=== PATIENT | female | born 1960 | race Caucasian/White ===

== ENCOUNTER → 2017-02-21 | Outpatient (CLI) | payer BC ==
[~2017-02-21] MED LIST: ALBU8.5H4 IH; ATOR10TA66 PO; DIPH25TA82 PO; ESCI20TA2 PO; ESTR1PAT TD; FEXO-16 PO; LIRA0.6P3 SQ; LOSA25TA5 PO; MELA5CAP PO; SAXA1TBM3 PO
--- NOTE | 2017-02-21 15:32 | Diagnostic Imaging Report ---
Three views of the sacrum and coccyx. INDICATION: Fall, coccyx pain. FINDINGS: There is normal alignment of the SI joints. There is no fracture identified. No radiopaque foreign body seen. IMPRESSION: Unremarkable exam. Dictated by: Dictated on workstation # [id number]
== END ==
LOC: RAD 14:50
PROVIDERS: ATTEND Nurse Practitioner Family
DX: M53.3 Sacrococcygeal disorders, not elsewhere classified (principal)
CPT/HCPCS: 72220

== ENCOUNTER → 2021-12-16 | Outpatient (CLI) | payer BC ==
--- NOTE | 2021-12-16 10:35 | Diagnostic Imaging Report ---
CLINICAL INDICATION: Patient with shortness of air and right-sided pain. EXAM: Chest x-ray PA and lateral views. COMPARISON: Chest x-ray dated 10/17/2011. FINDINGS: Lungs/pleura: There is interval mild patchy and curvilinear opacities in both lung bases which may represent atelectasis versus infiltrates. There is no pneumothorax. There is no pleural effusion. Mediastinum: Unremarkable. Pulmonary vasculature: Unremarkable. Heart: Unremarkable. Bones/extrathoracic soft tissue: There are hypertrophic spurs involving the thoracic spine.. IMPRESSION: There are interval mild bibasilar atelectasis versus infiltrates. Dictated by: Dictated on workstation # [id number]
== END ==
LOC: RAD 09:47
PROVIDERS: ATTEND Nurse Practitioner Family
DX: R06.02 Shortness of breath (principal); R05.3 Chronic cough; R07.9 Chest pain, unspecified
CPT/HCPCS: 71046

== ENCOUNTER → 2021-12-21 | Outpatient (CLI) | payer BC ==
[~2021-12-21] MED LIST changes: +CATHETER FLUSH 10 ML SYR IV PRN; +IOHEXOL 350 MG/ML 100 ML (OMNIPAQUE 350) VIAL IV ONE; +NS 100 ML (IVPB) BAG IV ONE; +RT-ALBUTEROL SULF 2.5 MG/3 ML PRE-MIX VIAL INH ONE
[2021-12-21 11:57] LABS: CREATININE SERUM 0.95 MG/DL (0.60-1.30)
--- NOTE | 2021-12-21 13:31 | Diagnostic Imaging Report ---
EXAMINATION: CT chest with intravenous contrast. TECHNIQUE: Multiple contiguous axial images were obtained through the chest after the uneventful administration of intravenous contrast. All CT scans use one or more of the following dose optimizing techniques: automated exposure control, MA and/or KvP adjustment based on patient size and exam type or iterative reconstruction. HISTORY: Chronic cough, shortness of breath. COMPARISON: None available. FINDINGS: Thyroid: The thyroid is normal. Mediastinum: Heart size is normal without significant pericardial effusion. A filling defect is seen within the right main pulmonary artery extending into the right lower lobe pulmonary artery. Filling defect is also seen within the left lower lobe segmental branches. The aorta is normal in caliber. No suspicious lymphadenopathy. Lungs and airways: There are background emphysematous changes of the lungs. Right lower lobe atelectasis or consolidation/infarct. No pleural effusion or pneumothorax. The airways are normal. Upper abdomen: Cholelithiasis. Musculoskeletal: Degenerative changes of the spine without suspicious osseous lesion or compression fracture. IMPRESSION: 1. Findings concerning for pulmonary embolus within the right main, right lower, and left lower lobe pulmonary arteries. 2. Right lower lobe atelectasis/consolidation versus pulmonary infarct. 3. COPD. 4. CRITICAL FINDING. The report was called to Laura the office of Maile Ge APRN, by randal@1:30 PM. Dictated by: Dictated on workstation # [id number]
== END ==
LOC: RAD 12:15
PROVIDERS: ATTEND Nurse Practitioner Family
DX: J44.9 Chronic obstructive pulmonary disease, unspecified (principal); Z87.891 Personal history of nicotine dependence
CPT/HCPCS: 71260; 82565; 84520; 94060; 94726; 94729

== ENCOUNTER → 2021-12-22 | Outpatient (CLI) | payer BC ==
[~2021-12-22] MED LIST changes: -CATHETER FLUSH 10 ML SYR IV PRN; -IOHEXOL 350 MG/ML 100 ML (OMNIPAQUE 350) VIAL IV ONE; -NS 100 ML (IVPB) BAG IV ONE; -RT-ALBUTEROL SULF 2.5 MG/3 ML PRE-MIX VIAL INH ONE
--- NOTE | 2021-12-22 09:45 | Diagnostic Imaging Report ---
PROCEDURE: US Venous Lower Ext Sae. TECHNIQUE: Multiple Real-time grayscale images were obtained over the lower extremities in various projections, bilaterally. Additional duplex Doppler and color Doppler images were also obtained. INDICATION: Pulmonary embolism. FINDINGS: There is partially occlusive DVT in the right common femoral vein extending to the popliteal vein. There is occlusive DVT in the peroneal trunk extending into the calf on the right as well. The left lower extremity deep venous system shows normal compressibility with normal response to augmentation and Valsalva. No fluid collections are seen. IMPRESSION: Extensive right lower extremity DVT. Left lower extremity is unremarkable. Dictated by: Dictated on workstation # [id number]
== END ==
LOC: RAD 08:30
PROVIDERS: ATTEND Nurse Practitioner Family
DX: I82.401 Acute embolism and thrombosis of unspecified deep veins of right lower extremity (principal); I26.99 Other pulmonary embolism without acute cor pulmonale
CPT/HCPCS: 93970

== ENCOUNTER → 2022-01-14 | Outpatient (CLI) | payer BC ==
[~2022-01-14] MED LIST changes: +CATHETER FLUSH 10 ML SYR IV PRN; +HOLD METFORMIN - RECEIVED CONTRAST 20 ML VIAL IV SCH; +IOHEXOL 350 MG/ML 100 ML (OMNIPAQUE 350) VIAL IV ONE; +NS 100 ML (IVPB) BAG IV ONE
--- NOTE | 2022-01-14 10:21 | Diagnostic Imaging Report ---
PROCEDURE: CT angiography of the chest with contrast. TECHNIQUE: Multiple contiguous axial images were obtained through the chest after uneventful bolus administration of intravenous contrast. 3D reconstructed CTA MIP acquisitions were also performed. Auto Exposure Controls were utilized during the CT exam to meet ALARA standards for radiation dose reduction. INDICATION: History of DVT, PE and COPD. COMPARISON with study 12/21/2021. FINDINGS: A small amount of incompletely occlusive clot within the distal right main pulmonary artery extends into the right lower lobar branches and is believed to be at least somewhat decreased from the prior. Small amount of nonocclusive clot within left lower lobe pulmonary arterial branches also decreased. Pleural-based wedged configured opacity in the right lower lobe, likely on a post ischemic basis has shown partial retraction and there is decreased bibasilar partial atelectasis, greater right. There has been no adverse development and no findings to suggest new or progressive PE. There are no secondary findings of pulmonary hypertension or right heart strain. The aorta is patent, nonaneurysmal and nonacute. No intracardiac chamber mass or thrombus apparent. The aorta is patent, nonaneurysmal and nonacute. There is no pneumothorax. No pleural or pericardial effusion. No lymphadenopathy. The visualized upper abdomen nonacute with cholelithiasis noted. IMPRESSION: At least mild interval reduction in bilateral greater right pulmonary arterial embolic disease with no new thrombus identified and no findings of right heart strain or features suggestive of elevated right heart pressures. Retraction of a likely [place] hump in the right lower lobe with improvements in basilar atelectasis. No acute pleural pathology. Cholelithiasis. Report given and faxed to [facility] at 10:20 AM 01/14/2022/cb Dictated by: Dictated on workstation # [id number]
== END ==
LOC: RAD 08:30
PROVIDERS: ATTEND Nurse Practitioner Family
DX: I82.409 Acute embolism and thrombosis of unspecified deep veins of unspecified lower extremity (principal); J90 Pleural effusion, not elsewhere classified; J44.9 Chronic obstructive pulmonary disease, unspecified; K80.20 Calculus of gallbladder without cholecystitis without obstruction
CPT/HCPCS: 71275

== ENCOUNTER → 2022-02-15 | Outpatient (CLI) | payer BC ==
[~2022-02-15] MED LIST changes: -CATHETER FLUSH 10 ML SYR IV PRN; +CATHETER FLUSH 10 ML SYR IVP PRN; -HOLD METFORMIN - RECEIVED CONTRAST 20 ML VIAL IV SCH; -IOHEXOL 350 MG/ML 100 ML (OMNIPAQUE 350) VIAL IV ONE; -NS 100 ML (IVPB) BAG IV ONE; +REGADENOSON 0.4 MG/5 ML SYR (LEXISCAN) IV ONE
[2022-02-15 09:28] VITALS: BP 130/83
== END ==
LOC: CARD 08:30
PROVIDERS: ATTEND Internal Medicine Cardiovascular Disease
DX: I25.10 Atherosclerotic heart disease of native coronary artery without angina pectoris (principal)
CPT/HCPCS: 78452; 93017; A9502

== ENCOUNTER → 2022-02-16 | Outpatient (CLI) | payer BC ==
[~2022-02-16] MED LIST changes: -CATHETER FLUSH 10 ML SYR IVP PRN; -REGADENOSON 0.4 MG/5 ML SYR (LEXISCAN) IV ONE
== END ==
LOC: CARD 14:30
PROVIDERS: ATTEND Internal Medicine Cardiovascular Disease
DX: I35.8 Other nonrheumatic aortic valve disorders (principal); I51.7 Cardiomegaly
CPT/HCPCS: 93306

== ENCOUNTER 2022-11-11 11:30 | Emergency (ER) | payer BC ==
[~2022-11-11] VITALS: Ht 165 cm; Wt 73.0 kg
[2022-11-11 12:00] LABS: BASOPHILS # (AUTO) 0.1 10^3/uL (0.0-0.1); BASOPHILS % (AUTO) 1 % (0-10); EOSINOPHILS # (AUTO) 0.1 10^3/uL (0.0-0.3); EOSINOPHILS % (AUTO) 2 % (0-10); HEMATOCRIT 46 % (35-52); HEMOGLOBIN 15.7 g/dL (11.5-16.0); LYMPHOCYTES # (AUTO) 3.2 10^3/uL (1.0-4.0); LYMPHOCYTES % (AUTO) 43 % (12-44); MEAN CORPUSCULAR HEMOGLOBIN 30 pg (25-34); MEAN CORPUSCULAR HGB CONC 34 g/dL (32-36); MEAN CORPUSCULAR VOLUME 89 fL (80-99); MEAN PLATELET VOLUME 10.3 fL (9.0-12.2); MONOCYTES # (AUTO) 0.6 10^3/uL (0.0-1.0); MONOCYTES % (AUTO) 8 % (0-12); NEUTROPHILS # (AUTO) 3.4 10^3/uL (1.8-7.8); NEUTROPHILS % (AUTO) 46 % (42-75); PLATELET COUNT 201 10^3/uL (130-400); WHITE BLOOD COUNT 7.3 10^3/uL (4.3-11.0)
--- NOTE | 2022-11-11 12:04 | ED Chest Pain ---
General Chief Complaint: Respiratory Problems Stated Complaint: CHEST PAINS Nursing Triage Note: PT AMB TO TRIAGE, PT STATES FEELS LIKE MAY HAS PE. PT STATES SL SOA, HAS PAIN IN R CALF AND STATES HAD LONG CAR RIDES YESTERDAY. PT HAS PAIN IN R SIDE RATES DISCOMFORT 11/11 Source: patient Exam Limitations: no limitations (CHICHO WHYTE) History of Present Illness Date Seen by Provider: Nov 11, 2022 Time Seen by Provider: 12:02 Initial Comments Patient is a 62-year-old female who presents ED with right-sided chest pain and shortness of breath. Patient has a history of PE. Currently on Xarelto. Patient states yesterday she traveled to [place]. She noticed yesterday having some pain to the right lower ribs that was intermittent with shortness of breath. She states while she was reading was only able to read 2 or 3 words and started feeling short of breath. This is intermittent. This became worse last night. No current chest pain. She started developing pain behind her right calf without any swelling, bruising or redness. She states her symptoms today feels very similar to when she had a PE. She does have a history of COPD and does have a breathing nebulizer at home. She reports a mild cough without wheezing. Denies abdominal pain, fever, vomiting, diarrhea, headache, dizziness. Denies history of stroke, DC (CHICHO WHYTE) Allergies and Home Medications Allergies Coded Allergies: No Known Drug Allergies (Verified Allergy, Unknown, 01/25/09) Patient Home Medication List Home Medication List Reviewed: Yes (CHICHO WHYTE) Atorvastatin Calcium (Atorvastatin Calcium) 10 Mg Tablet, 20 MG PO HS, (Reported) Entered as Reported by: SHASHI THOMPSON on 06/25/12 1359 Diphenhydramine Hcl (Diphenhydramine 25 Mg) 25 Mg Tablet, 1 EACH PO HS, (R eported) Entered as Reported by: LUIS HAYNES on 04/29/13 0750 Escitalopram Oxalate (Lexapro) 20 Mg Tablet, 1 EACH PO HS, (Reported) Entered as Reported by: MARIBELL GARCIA on 02/18/13 0825 Fexofenadine Hcl (Wal-Fex Allergy) 180 Mg Tablet, 180 MG PO HS, (Reported) Entered as Reported by: SHASHI THOMPSON on 06/25/12 1359 Liraglutide (Victoza 3-Rajiv) 0.6 Mg/0.1 Ml Pen.injctr, 0.6 MG SQ DAILY, (Reported) Entered as Reported by: MARIBELL GARCIA on 02/18/13 0825 Losartan Potassium (Losartan Potassium) 25 Mg Tablet, 50 MG PO HS, (Reported) Entered as Reported by: SHASHI THOMPSON on 06/25/12 135 Melatonin (Melatonin) 5 Mg Capsule, 7.5 MG PO HS, (Reported) Entered as Reported by: SHASHI THOMPSON on 06/25/12 1359 Review of Systems Review of Systems Constitutional: No chills, No diaphoresis, No malaise, No weakness EENTM: No Eye Pain, No Ear Pain, No Mouth Pain, No Throat Swelling Respiratory: Denies Cough; Shortness of Air Cardiovascular: Chest Pain Gastrointestinal: Denies Abdominal Pain, Denies Diarrhea, Denies Nausea, Denies Vomiting Genitourinary: Denies Burning, Denies Discharge Musculoskeletal: No back pain, No joint pain; muscle pain Skin: No change in color, No change in hair/nails (CHICHO WHYTE) All Other Systems Reviewed Negative Unless Noted: Yes (CHICHO WHYTE) Past Mjfyimw-Ldalzb-Wsasvj Hx Patient Social History Tobacco Use?: Yes Tobacco type used: Cigarettes Smoking Status: Current Everyday Smoker Substance use?: Yes Substance type: Marijuana Substance frequency: Daily Alcohol Use?: No (CHICHO WHYTE) Immunizations Up To Date Influenza Vaccine Up-to-Date: No; Not Current (CHICHO WHYTE) Past Medical History Surgery/Hospitalization HX: PE, DIABETES, Reproductive Disorders: No (CHICHO WHYTE) Physical Exam Vital Signs Vital Signs - First Documented 11/11/22 11:32 Temp 36.8 Pulse 80 Resp 16 B/P (MAP) 180/80 (113) Pulse Ox 95 (JARRED HURTADO MD) Vital Signs Capillary Refill : Less Than 3 Seconds (CHICHO WHYTE) Height, Weight, BMI Height: '" Weight: 215lbs. oz. [id number]; 26.00 BMI Method: General Appearance: No Apparent Distress, WD/WN HEENT: PERRL/EOMI, TMs Normal, Normal ENT Inspection, Pharynx Normal Neck: Full Range of Motion, Normal Inspection, Non Tender, Supple Respiratory: Chest Non Tender, Lungs Clear, Normal Breath Sounds, No Accessory Muscle Use, No Respiratory Distress Cardiovascular: Regular Rate, Rhythm, No Edema, No Gallop, No JVD Gastrointestinal: Normal Bowel Sounds, No Organomegaly, No Pulsatile Mass, Non Tender Extremity: Normal Capillary Refill, Normal Range of Motion, Other (Tenderness to right posterior calf.) Neurologic/Psychiatric: Alert, Oriented x3, No Motor/Sensory Deficits, Normal Mood/Affect (CHICHO WHYTE) Progress/Results/Core Measures Results/Orders Lab Results Laboratory Tests Test 11/11/22 11:48 Range/Units White Blood Count 7.3 4.3-11.0 10^3/uL Red Blood Count 5.19 H 3.80-5.11 10^6/uL Hemoglobin 15.7 11.5-16.0 g/dL Hematocrit 46 35-52 % Mean Corpuscular Volume 89 80-99 fL Mean Corpuscular Hemoglobin 30 25-34 pg Mean Corpuscular Hemoglobin Concent 34 32-36 g/dL Red Cell Distribution Width 13.7 10.0-14.5 % Platelet Count 201 130-400 10^3/uL Mean Platelet Volume 10.3 9.0-12.2 fL Immature Granulocyte % (Auto) 0 % Neutrophils (%) (Auto) 46 42-75 % Lymphocytes (%) (Auto) 43 12-44 % Monocytes (%) (Auto) 8 0-12 % Eosinophils (%) (Auto) 2 0-10 % Basophils (%) (Auto) 1 0-10 % Neutrophils # (Auto) 3.4 1.8-7.8 10^3/uL Lymphocytes # (Auto) 3.2 1.0-4.0 10^3/uL Monocytes # (Auto) 0.6 0.0-1.0 10^3/uL Eosinophils # (Auto) 0.1 0.0-0.3 10^3/uL Basophils # (Auto) 0.1 0.0-0.1 10^3/uL Immature Granulocyte # (Auto) 0.0 0.0-0.1 10^3/uL Prothrombin Time 20.5 H 12.2-14.7 SEC INR Comment 1.7 H 0.8-1.4 Activated Partial Thromboplast Time 37 H 24-35 SEC D-Dimer 0.67 H 0.00-0.49 UG/ML Sodium Level 139 135-145 MMOL/L Potassium Level 3.8 3.6-5.0 MMOL/L Chloride Level 107 98-107 MMOL/L Carbon Dioxide Level 23 21-32 MMOL/L Anion Gap 9 5-14 MMOL/L Blood Urea Nitrogen 9 7-18 MG/DL Creatinine 0.73 0.60-1.30 MG/DL Estimat Glomerular Filtration Rate 93 BUN/Creatinine Ratio 12 Glucose Level 110 H 70-105 MG/DL Calcium Level 9.7 8.5-10.1 MG/DL Corrected Calcium 9.5 8.5-10.1 MG/DL Magnesium Level 2.0 1.6-2.4 MG/DL Total Bilirubin 1.2 H 0.1-1.0 MG/DL Aspartate Amino Transf (AST/SGOT) 15 5-34 U/L Alanine Aminotransferase (ALT/SGPT) 15 0-55 U/L Alkaline Phosphatase 67 40-136 U/L Myoglobin 37.0 10.0-92.0 NG/ML Troponin I < 0.028 <0.028 NG/ML B-Type Natriuretic Peptide 10.0 <100.0 PG/ML Total Protein 7.2 6.4-8.2 GM/DL Albumin 4.3 3.2-4.5 GM/DL Lipase 37 8-78 U/L (JARRED HURTADO MD) My Orders Orders - JARRED HURTADO MD Ekg Tracing (11/11/22 11:42) (JARRED HURTADO MD) Vital Signs/I&O 11/11/22 11/11/22 11:32 13:40 Temp 36.8 Pulse 80 56 Resp 16 18 B/P (MAP) 180/80 (113) 164/83 Pulse Ox 95 98 (JARRED HURTADO MD) Blood Pressure Mean: 113 Comment Sinus rhythm, 60 bpm, QRS duration 93 MS, QTc 422 MS (CHICHO WHYTE) Departure Communication (PCP) Reviewed previous ER visits, testing. History of PE. Currently on Xarelto. She is complaint of right-sided rib pain. This started yesterday she believes with some shortness of breath with reading. She has no current chest pain at this time. Stress test February 2022 showed no evidence of any significant myocardial ischemia or infarction. Normal regional wall motion, left ventricular systolic function ejection fraction of 66%. Patient concern for PE. She states she has pain to her right posterior calf. On exam she does have right tenderness to the right calf. Ultrasound was negative for DVT. Due to the right-sided rib, chest pain cardiac work-up was initiated with CBC, CMP, troponin, chest x-ray. She had a slight increase in her coags but she is on Xarelto. Elevated D-dimer 0.67. Patient CBC and CMP was otherwise unremarkable. Normal troponin and BNP. CT angio of the chest was negative for acute PE, pneumonia, pneumothorax. Chronic PEs noted. No evidence of right h eart strain. Patient had no pain during her stay here. Vital signs were stable. She states this past week she was at a basketball game and may have been cheering and may have strained her right sided ribs however cannot rule out other potential etiologies. This does not appear to be cardiac in nature. Suspect more pulmonary versus chest wall pain. She did have some mild tende rness to palpate. No pain with eating, vomiting. She does not appear in acute distress. Previous cardiac work-up last year was reassuring. Patient is comfortable to be discharged at this time. Discussed Tylenol. Recommend heat. If any worsening chest pain or shortness of breath return back to ED. improve a blood pressure 165/83. She is currently on losartan. Continue monitoring blood pressure and follow-up with your primary care physician for further evaluation (CHICHO WHYTE) Impression Primary Impression: Right-sided chest pain Disposition: HOME, SELF-CARE Condition: Stable Departure-Patient Inst. Decision time for Depature: 13:28 (CHICHO WHYTE) Referrals: THAIS OLSON MD (PCP/Family) Primary Care Physician Patient Instructions: Chest Pain, Adult ED Add. Discharge Instructions: If any worsening chest pain, shortness of breath return back to ED. All discharge instructions reviewed with patient and/or family. Voiced understanding. ATTENDING PHYSICIAN NOTE: I was physically present as attending physician in the emergency department during the care of this patient, but I was not directly involved in the decision making or delivery of care for this patient. (JARRED HURTADO MD) CHICHO WHYTE Nov 11, 2022 12:04 JARRED HURTADO MD Nov 12, 2022 09:19
[2022-11-11 12:19] LABS: ALBUMIN 4.3 GM/DL (3.2-4.5)
[2022-11-11 12:20] LABS: POTASSIUM 3.8 MMOL/L (3.6-5.0)
[2022-11-11 12:21] LABS: CALCIUM 9.7 MG/DL (8.5-10.1)
[2022-11-11 12:22] LABS: INR 1.7 (0.8-1.4); PROTHROMBIN TIME PATIENT 20.5 SEC (12.2-14.7); TOTAL PROTEIN 7.2 GM/DL (6.4-8.2)
[2022-11-11 12:24] LABS: BILIRUBIN,TOTAL 1.2 MG/DL (0.1-1.0)
[2022-11-11 12:25] LABS: CREATININE SERUM 0.73 MG/DL (0.60-1.30)
[2022-11-11] MEDS ORDERED: HOLD METFORMIN - RECEIVED CONTRAST 20 ML VIAL IV SCH (12:45)
[2022-11-11] MEDS ORDERED: NS 100 ML (IVPB) BAG IV ONE (12:45)
[2022-11-11] MEDS ORDERED: IOHEXOL 350 MG/ML 100 ML (OMNIPAQUE 350) VIAL IV ONE (12:45)
--- NOTE | 2022-11-11 12:48 | Diagnostic Imaging Report ---
INDICATION: Right leg pain. Right leg venous Doppler study was performed in the routine fashion with color flow Doppler and waveform analysis. FINDINGS: The right common femoral vein, superficial femoral vein, popliteal vein and visualized portion of the tibial veins show normal compressibility and venous flow patterns. There is normal augmentation. IMPRESSION: No evidence of deep vein thrombosis of the major veins of the right leg. Dictated by: Dictated on workstation # [id number]
--- NOTE | 2022-11-11 13:10 | Diagnostic Imaging Report ---
INDICATION: Shortness of breath. EXAMINATION: Portable chest, 1:00 p.m. FINDINGS: Heart size and pulmonary vascularity are normal. Lungs are clear. There are no effusions or pneumothoraces. IMPRESSION: Negative chest. Dictated by: Dictated on workstation # [id number]
--- NOTE | 2022-11-11 13:17 | Diagnostic Imaging Report ---
PROCEDURE: CT angiography Chest TECHNIQUE: After intravenous administration of contrast, thin section axial CT angiography of the chest was performed. 3D MIP reconstructions were made. All CT scans use one or more of the following dose optimizing techniques: automated exposure control, MA and/or KvP adjustment based on a patient size and exam type, or iterative reconstruction. INDICATION: Right-sided chest pain. COMPARISON: 01/14/2022 FINDINGS: Vasculature: No acute filling defects within the pulmonary arteries. There are web/bands of chronic pulmonary emboli involving the right lower lobe segmental pulmonary arteries. No features of right ventricular strain. Normal caliber thoracic aorta. Heart and mediastinum: Visualized thyroid is normal. No supraclavicular, axillary, or intra-thoracic lymphadenopathy. The heart is normal in size without pericardial effusion. Pleura: No pleural effusion or pneumothorax. Lungs and airway: No endoluminal lesion in the trachea or central bronchi. Scattered areas of linear atelectasis within right lung base. Mild centrilobular emphysema. No pneumonia or edema. Upper abdomen: Cholelithiasis. No CT features of acute cholecystitis. Musculoskeletal: Stable irregular sclerosis of the right 1st rib. Remainder of the osseous structures are normal. IMPRESSION: 1. No acute pulmonary emboli. 2. Small burden of chronic pulmonary emboli in the right lower lobe characterized by thin band/webs and they are nonocclusive. No features of right ventricular strain or pulmonary hypertension. 3. No right-sided rib fracture. Dictated by: Dictated on workstation # [id number]
[2022-11-11 13:40] VITALS: BP 164/83
== END 2022-11-11 13:43 | disposition home or self-care (01) ==
LOC: EDUNIT# 11:30 → ER 11:31
DX: R07.81 Pleurodynia (principal); M79.661 Pain in right lower leg; R79.1 Abnormal coagulation profile; F17.210 Nicotine dependence, cigarettes, uncomplicated; J44.9 Chronic obstructive pulmonary disease, unspecified; Z86.711 Personal history of pulmonary embolism; Z79.01 Long term (current) use of anticoagulants; Z79.899 Other long term (current) drug therapy
CPT/HCPCS: 36415; 71045; 71275; 80053; 83690; 83735; 83874; 83880; 84484; 85025; 85379; 85610; 85730; 93005; 93041